=== PATIENT | male | born 1950 | race Caucasian/White ===

== ENCOUNTER 2016-10-17 18:21 | Emergency (ER) | payer OTHER ==
[~2016-10-17] VITALS: Ht 170.2 cm; Wt 110.9 kg
[2016-10-17] MEDS ORDERED: DUTA.5 PO (18:38)
[2016-10-17] MEDS ORDERED: VITAD5000 PO (18:38)
[2016-10-17] MEDS ORDERED: DOXA2TAB PO (18:38)
[2016-10-17] MEDS ORDERED: LABE200T PO (18:38)
[2016-10-17] MEDS ORDERED: LOSA1TAB40 PO (18:38)
[2016-10-17] MEDS ORDERED: TADA2.5T PO (18:38)
[2016-10-17] MEDS ORDERED: ONDANSETRON HCL 4 MG/2 ML VIAL IM ONE (20:30)
[2016-10-17] MEDS ORDERED: MORPHINE SULFATE 4 MG/ML SYRINGE IM ONE (20:30)
[2016-10-17 21:30] VITALS: BP 160/94
== END 2016-10-17 22:20 | disposition home or self-care (01) ==
LOC: EMS 18:23
DX: R33.9 Retention of urine, unspecified (principal); R30.9 Painful micturition, unspecified; I10 Essential (primary) hypertension; Z88.1 Allergy status to other antibiotic agents
CPT/HCPCS: 51702; 99284